=== PATIENT | female | born 1950 | race Caucasian/White ===

== ENCOUNTER 2024-07-16 05:46 | Day surgery (SDC) | payer OTHER ==
[2024-07-13 10:25] VITALS: BP 174/74
[~2024-07-16] VITALS: Ht 154.9 cm; Wt 78.9 kg
[~2024-07-16 05:46] MED LIST: AVAPRO150 MG PO; INDAPAMIDE1.25 MG PO; PREVACID15 M1 PO; ROSUVASTATIN CA10 MG PO; SYNTHROID100 MCG PO; XYZAL5 MG PO; ZYRTEC10 M3 PO
[2024-07-16] MEDS ORDERED: ENALAPRILAT DIHYDRATE 1.25 MG/ML VIAL IV ONE ×2 (17:35→18:05)
== END 2024-07-16 18:20 | disposition home or self-care (01) ==
LOC: CIR.AMB 05:46
PROVIDERS: ATTEND Obstetrics & Gynecology
DX: N85.00 Endometrial hyperplasia, unspecified (principal); N85.8 Other specified noninflammatory disorders of uterus; N95.2 Postmenopausal atrophic vaginitis; Z88.6 Allergy status to analgesic agent; Z91.02 Food additives allergy status; I10 Essential (primary) hypertension; E78.00 Pure hypercholesterolemia, unspecified; E03.8 Other specified hypothyroidism; E66.9 Obesity, unspecified